=== PATIENT | female | born 1980 | race Two or more races ===

== ENCOUNTER → 2017-04-27 | Outpatient (CLI) | payer OTHER ==
--- NOTE | 2017-04-27 14:19 | CARD ---
MR#: [id number] Date of Study: 04/27/2017 Ordering Physician: BIANKA PALMA, Referring Physician: BIANKA PALMA Tech: Jassi Wilkinson [facility] APPROVED REPORT EXAM: Two-dimensional and M-mode echocardiogram with Doppler and color Doppler. Other Information Quality : FairHR: 72bpm Technically limited study due to body habitus. INDICATION Peripheral Edema RISK FACTORS Obesity 2D DIMENSIONS Left Atrium(2D)3.8 (1.6-4.0cm)IVSd1.2 (0.7-1.1cm) Aortic Root(2D)2.6 (2.0-3.7cm)LVDd5.5 (3.9-5.9cm) LVOT Diameter2.1 (1.8-2.4cm)PWd1.4 (0.7-1.1cm) LVDs3.6 (2.5-4.0cm)FS (%) 34.1 % SV92.0 mlLVEF(%)62.5 (>50%) Aortic Valve AoV Peak Jack.183.6cm/sAoV VTI40.4cm AO Peak GR.13.5mmHgLVOT Peak Jack.116.6cm/s AO Mean GR.7mmHgAVA (VMAX)2.13cm2 Mitral Valve MV E Mqcsiqho42.3cm/sMV DECEL [id number] MV A Hylrgkdb21.0cm/sE/A Ratio1.2 Pulmonary Valve PV Peak Ujhtqtir235.8cm/s Pulmonary Vein S1 Bqtdoowy05.5cm/sD2 Rwularww69.1cm/s LEFT VENTRICLE The left ventricle is normal size. There is mild concentric left ventricular hypertrophy. The left ve ntricular systolic function is normal and the ejection fraction is within normal range. EF 55% There is grossly normal LV segmental wall motion. Suboptimal images. The left ventricular diastolic functio n and filling is normal for age. RIGHT VENTRICLE The right ventricle is normal size. The right ventricular systolic function is normal. ATRIA The left atrium size is normal. The right atrium size is normal. The interatrial septum is intact wit h no evidence for an atrial septal defect or patent foramen ovale as noted on 2-D or Doppler imaging. AORTIC VALVE The aortic valve is normal in structure and function. Doppler and Color Flow revealed no significant aortic regurgitation. There is no significant aortic valvular stenosis. There is no aortic valvular v egetation. MITRAL VALVE The mitral valve is normal in structure and function. There is no evidence of mitral valve prolapse. There is no mitral valve stenosis. Doppler and Color Flow revealed no mitral valve regurgitation note d. TRICUSPID VALVE The tricuspid valve was not visualized well. Doppler and Color Flow revealed trace tricuspid regurgit ation. There is no tricuspid valve prolapse or vegetation. There is no tricuspid valve stenosis. PULMONIC VALVE Was not visualized. Doppler and Color Flow revealed no pulmonic valvular regurgitation. There is no p ulmonic valvular stenosis. GREAT VESSELS The aortic root is normal in size. Was not visualized. PERICARDIAL EFFUSION There is no pleural effusion. There is no evidence of significant pericardial effusion. Critical Notification Critical Value: No <Conclusion> The left ventricular systolic function is normal and the ejection fraction is within normal range. EF 55% There is grossly normal LV segmental wall motion. Suboptimal images. Signed by : Rey sEpinosa, Electronically Approved : 04/27/2017 14:18:20
== END | disposition home or self-care (01) ==
LOC: ECHO 12:55
PROVIDERS: ATTEND Physician Assistant Surgical
DX: I51.7 Cardiomegaly (principal); R06.00 Dyspnea, unspecified
CPT/HCPCS: 93306